=== PATIENT | male | born 1990 | race Caucasian/White ===

== ENCOUNTER 2020-05-29 11:24 | Inpatient (IN) | payer MEDICAID ==
[~2020-05-29] VITALS: Ht 170.2 cm; Wt 87.0 kg
[2020-05-29] VITALS (10 sets, daily range): BP systolic 96–122; BP diastolic 45–72
[2020-05-29 11:49] LABS: CLARITY,URINE CLEAR (Clear); COLOR,URINE YELLOW (Yellow); GLUCOSE, URINE NEGATIVE (Neg); KETONES,URINE 40 mg/dl (Neg); LEUKOCYTE ESTERASE ,URINE NEGATIVE (Neg); NITRITES, URINE NEGATIVE (Neg); OCCULT BLOOD,URINE MODERATE (Neg); PROTEIN,URINE NEGATIVE (Neg)
[2020-05-29 12:01] LABS: UA COLLECTION TYPE CLN CATCH MIDSTREAM
[2020-05-29 12:06] LABS: MUCUS STRANDS MODERATE /LPF (Neg); SQUAMOUS EPITHELIAL CELL,UR MANY /LPF (FEW)
[2020-05-29 12:10] LABS: WBC,URINE 0-4 /HPF (0-4)
[2020-05-29 12:11] LABS: BACTERIA,URINE NONE SEEN /HPF (Neg)
[2020-05-29] MEDS ORDERED: normal saline 1000ML IV soln IVB ONE (12:15)
[2020-05-29 12:22] LABS: BASOPHILS % (AUTO) 0.3 % (0-1); EOSINOPHILS % (AUTO) 0.2 % (0-6); HEMATOCRIT 40.9 % (42.0-52.0); HEMOGLOBIN 13.9 g/dl (14.0-17.9); LYMPHOCYTES # (AUTO) 1.1 X10'3 (1.1-4.8); LYMPHOCYTES % (AUTO) 14.3 % (21-51); MEAN CORPUSCULAR HEMOGLOBIN 30.7 PG (27.0-31.0); MEAN CORPUSCULAR VOLUME 90.4 FL (78-98); MEAN PLATELET VOLUME 8.2 FL (7.4-10.4); MONOCYTES # (AUTO) 0.7 X10'3 (0-0.9); MONOCYTES % (AUTO) 8.5 % (2-12); NEUTROPHILS # (AUTO) 5.9 X10'3 (1.8-7.7); NEUTROPHILS % (AUTO) 76.7 % (42-75); PLATELET COUNT 205 X10'3 (140-440); RED BLOOD COUNT 4.53 X10'6 (4.70-6.10); RED CELL DISTRIBUTION WIDTH 13.8 % (11.5-14.5); WHITE BLOOD COUNT 7.7 X10'3 (4.5-11.0)
[2020-05-29 12:44] LABS: ALANINE AMINOTRANSFERASE 743 U/L (12-78); ALBUMIN 4.1 G/DL (3.4-5.0); ALKALINE PHOSPHATASE 162 IU/L (46-116); ANION GAP 10 (8-16); ASPARTATE AMINO TRANSFERASE 313 U/L (10-37); BLOOD UREA NITROGEN 7 MG/DL (7-18); BUN/CREATININE RATIO 7.7 (5.4-32.0); CALCIUM 9.5 MG/DL (8.5-10.1); CHLORIDE 103 MMOL/L (99-107); CREATININE 0.91 MG/DL (0.60-1.10); GLUCOSE 114 MG/DL (70-104); LIPASE 72 U/L (73-393); POTASSIUM 3.6 MMOL/L (3.5-5.1); SODIUM 138 MMOL/L (135-145); TOTAL CARBON DIOXIDE 25.1 MMOL/L (24-32); eGFR > 90 ML/MIN
[2020-05-29 12:45] LABS: ALBUMIN/GLOBULIN RATIO 1.2 (1.1-1.5); TOTAL PROTEIN 7.6 G/DL (6.4-8.2)
[2020-05-29] MEDS ORDERED: morphine 4 MG/ML inj SYRINge IV PRN (13:40)
[2020-05-29] MEDS ORDERED: ondansetron/PF 4mg/2ml inj IV ONE (13:40)
--- NOTE | 2020-05-29 13:57 | NUR ---
Patient denies nausea at this time.
[2020-05-29] MEDS ORDERED: NO HOME MEDS (14:09)
[2020-05-29] MEDS ORDERED: fentaNYL/PF 50MCG/1 ML 2ML syringe ONE ×2 (14:34→15:29)
[2020-05-29] MEDS ORDERED: proCHLORperazine 10 MG/2 ml inj ONE (14:34)
[2020-05-29] MEDS ORDERED: MIDAZolam 5mg/5ml vial ONE (14:34)
[2020-05-29] MEDS ORDERED: iohexol 300 MG/1 ML 50ml polymer ONE (14:35)
[2020-05-29] MEDS ORDERED: levoFLOXACIN-Levaquin 500mg/D5 100 ML IV ONE (14:35)
[2020-05-29] MEDS ORDERED: LIDOcaine Viscous 15ml cup ONE (14:35)
[2020-05-29] MEDS ORDERED: glucagon, human recombinant 1mg kit ONE (14:35)
[2020-05-29] MEDS ORDERED: magnesium Cl slow-release 64mg tablet PO PRN (14:45)
[2020-05-29] MEDS ORDERED: magnesium 2GM in 50ml NS 50 ML IV PRN (14:45)
[2020-05-29] MEDS ORDERED: HYDROcodone/acetaminophen 10/325mg tab PO PRN (14:45)
[2020-05-29] MEDS ORDERED: potassium CL 10mEq/100ml bag 100 ML IV PRN ×2 (14:45)
[2020-05-29] MEDS ORDERED: HYDROcodone/acetaminophen 5mg/325mg tablet PO PRN (14:45)
[2020-05-29] MEDS ORDERED: morphine 2 MG/ML inj. syringe IV PRN ×2 (14:45)
[2020-05-29] MEDS ORDERED: ondansetron/PF 4mg/2ml inj IV PRN (14:45)
[2020-05-29] MEDS ORDERED: magnesium 4gm in 100ml NS 100 ML IV PRN (14:45)
[2020-05-29] MEDS ORDERED: acetaminophen 325mg tablet PO PRN (14:45)
[2020-05-29] MEDS ORDERED: potassium Cl 20 mEq SR tablet PO PRN ×2 (14:45)
--- NOTE | 2020-05-29 17:30 | NUR ---
Patient in room [facility]. I have received report from Kasia ZHONG and had the opportunity to ask questions and assume patient care.
[2020-05-29] MEDS: metroNIDAZOLE-Flagyl 500mg/NS 100 ML IV SCH (17:43)
--- NOTE | 2020-05-29 18:37 | NUR ---
Problems reprioritized. Patient report given, questions answered & plan of care reviewed with Lakia ZHONG.
--- NOTE | 2020-05-29 18:40 | NUR ---
Dr. Albert notified of pts NPO status and Needing IVF. Pt was ordered NS@100. Addendum: 05/29/20 at 1916 by Lakia Hoang RN Amended: Links added.
--- NOTE | 2020-05-29 19:00 | NUR ---
Dr. Colmenares in to see pt who is asleep. Order for Hepatitis panel at this time. Addendum: 05/29/20 at 1916 by Lakia Hoang RN Amended: Links added.
[2020-05-29] MEDS: normal saline 1000ml 1,000 ML IV SCH (19:20)
[2020-05-29] MEDS: K and/or MAG REPLACEMENT MC SCH (19:21)
[2020-05-29] MEDS: heparin, porcine 5000 units/ml vial SQ SCH (19:21)
[2020-05-29] MEDS ORDERED: temazepam 15mg capsule PO PRN (21:00)
[2020-05-29] MEDS: ciprofloxacin lact 400MG/200ML 200 ML IV SCH (21:44)
[2020-05-30] VITALS: BP 110/68
[2020-05-30] MEDS: metroNIDAZOLE-Flagyl 500mg/NS 100 ML IV SCH ×4 (00:09→23:44)
[2020-05-30] MEDS: normal saline 1000ml 1,000 ML IV SCH ×3 (04:55→20:02)
--- NOTE | 2020-05-30 06:30 | NUR ---
Patient in room [facility]. I have received report from FARHEEN Dorman and had the opportunity to ask questions and assume patient care.
[2020-05-30 06:54] LABS: BASOPHILS % (AUTO) 0.4 % (0-1); EOSINOPHILS # (AUTO) 0.1 X10'3 (0-0.9); HEMATOCRIT 37.2 % (42.0-52.0); HEMOGLOBIN 12.6 g/dl (14.0-17.9); LYMPHOCYTES # (AUTO) 1.5 X10'3 (1.1-4.8); LYMPHOCYTES % (AUTO) 23.9 % (21-51); MEAN CORPUSCULAR HEMOGLOBIN 30.6 PG (27.0-31.0); MEAN CORPUSCULAR HGB CONC 33.8 g/dL (33.0-36.5); MEAN CORPUSCULAR VOLUME 90.6 FL (78-98); MEAN PLATELET VOLUME 8.6 FL (7.4-10.4); MONOCYTES # (AUTO) 0.5 X10'3 (0-0.9); MONOCYTES % (AUTO) 8.3 % (2-12); NEUTROPHILS # (AUTO) 4.1 X10'3 (1.8-7.7); NEUTROPHILS % (AUTO) 66.4 % (42-75); PLATELET COUNT 169 X10'3 (140-440); RED CELL DISTRIBUTION WIDTH 13.9 % (11.5-14.5); WHITE BLOOD COUNT 6.1 X10'3 (4.5-11.0)
[2020-05-30 07:00] VITALS: BP 105/56
[2020-05-30 07:06] LABS: ALANINE AMINOTRANSFERASE 526 U/L (12-78); ALBUMIN 3.1 G/DL (3.4-5.0); ALBUMIN/GLOBULIN RATIO 1.1 (1.1-1.5); ALKALINE PHOSPHATASE 139 IU/L (46-116); ANION GAP 9 (8-16); ASPARTATE AMINO TRANSFERASE 179 U/L (10-37); BILIRUBIN,TOTAL 2.2 MG/DL (0.1-1.0); BLOOD UREA NITROGEN 7 MG/DL (7-18); CALCIUM 8.4 MG/DL (8.5-10.1); CHLORIDE 109 MMOL/L (99-107); CHOL/HDL RATIO 3.3 (0.00-4.99); CHOLESTEROL 115 MG/DL (0-200); CREATININE 0.87 MG/DL (0.60-1.10); GLUCOSE 87 MG/DL (70-104); HDL CHOLESTEROL 35 MG/DL (35-60); LDL CHOLESTEROL 73 MG/DL (50-100); POTASSIUM 3.7 MMOL/L (3.5-5.1); SODIUM 141 MMOL/L (135-145); TOTAL CARBON DIOXIDE 22.7 MMOL/L (24-32); TRIGLYCERIDES 77 MG/DL (20-135); eGFR > 90 ML/MIN
[2020-05-30] MEDS: heparin, porcine 5000 units/ml vial SQ SCH ×2 (08:00→20:00)
[2020-05-30] MEDS: K and/or MAG REPLACEMENT MC SCH ×2 (08:00→19:53)
[2020-05-30] MEDS: ciprofloxacin lact 400MG/200ML 200 ML IV SCH ×2 (10:07→19:55)
[2020-05-30 11:00] VITALS: BP 106/61
--- NOTE | 2020-05-30 18:25 | NUR ---
Problems reprioritized. Patient report given, questions answered & plan of care reviewed with FARHEEN Dorman.
[2020-05-30 19:00] VITALS: BP 112/77
[2020-05-30] MEDS ORDERED: lactobacillus rhamnosus 10,000 MMU CELLS/CAPSULE PO SCH (20:00)
[2020-05-31] VITALS: BP 111/63
[2020-05-31 01:00] VITALS: BP 111/63
[2020-05-31 06:23] LABS: BASOPHILS % (AUTO) 0.2 % (0-1); EOSINOPHILS # (AUTO) 0.1 X10'3 (0-0.9); EOSINOPHILS % (AUTO) 1.4 % (0-6); HEMATOCRIT 37.8 % (42.0-52.0); HEMOGLOBIN 12.8 g/dl (14.0-17.9); LYMPHOCYTES % (AUTO) 35.5 % (21-51); MEAN CORPUSCULAR HEMOGLOBIN 30.7 PG (27.0-31.0); MEAN CORPUSCULAR HGB CONC 33.8 g/dL (33.0-36.5); MEAN CORPUSCULAR VOLUME 90.8 FL (78-98); MEAN PLATELET VOLUME 8.8 FL (7.4-10.4); MONOCYTES # (AUTO) 0.5 X10'3 (0-0.9); MONOCYTES % (AUTO) 8.7 % (2-12); NEUTROPHILS % (AUTO) 54.2 % (42-75); PLATELET COUNT 181 X10'3 (140-440); RED BLOOD COUNT 4.16 X10'6 (4.70-6.10); RED CELL DISTRIBUTION WIDTH 13.8 % (11.5-14.5); WHITE BLOOD COUNT 5.5 X10'3 (4.5-11.0)
--- NOTE | 2020-05-31 06:28 | NUR ---
Problems reprioritized. Patient report given, questions answered & plan of care reviewed with Monica ZHONG. Addendum: 05/31/20 at 0628 by Lakia Hoang RN Amended: Links added.
--- NOTE | 2020-05-31 06:30 | NUR ---
Patient in room [facility]. I have received report from RASHAWN ZHONG and had the opportunity to ask questions and assume patient care.
[2020-05-31 06:53] LABS: ALANINE AMINOTRANSFERASE 456 U/L (12-78); ALBUMIN 3.4 G/DL (3.4-5.0); ALBUMIN/GLOBULIN RATIO 1.1 (1.1-1.5); ALKALINE PHOSPHATASE 145 IU/L (46-116); ANION GAP 11 (8-16); ASPARTATE AMINO TRANSFERASE 99 U/L (10-37); BILIRUBIN,TOTAL 1.4 MG/DL (0.1-1.0); BLOOD UREA NITROGEN 7 MG/DL (7-18); BUN/CREATININE RATIO 7.2 (5.4-32.0); CALCIUM 8.8 MG/DL (8.5-10.1); CHLORIDE 106 MMOL/L (99-107); CREATININE 0.97 MG/DL (0.60-1.10); GLUCOSE 90 MG/DL (70-104); MAGNESIUM 1.8 MG/DL (1.5-2.4); POTASSIUM 3.4 MMOL/L (3.5-5.1); SODIUM 141 MMOL/L (135-145); TOTAL CARBON DIOXIDE 24.1 MMOL/L (24-32); TOTAL PROTEIN 6.5 G/DL (6.4-8.2); eGFR 90 ML/MIN
[2020-05-31 07:00] VITALS: BP 107/68
[2020-05-31] MEDS ORDERED: BUPIVAcaine/PF 2.5 mg/ml (0.25%) 30ml vial ONE (07:14)
[2020-05-31] MEDS ORDERED: INDOCYANINE GREEN 25 MG/10 ML VIAL IV ONE (07:15)
--- NOTE | 2020-05-31 07:38 | NUR ---
PERFORMED COVID SWAB, PUSHED ICE GREEN AND TRIED TO CALL OR TO TELL THEM THAT PT HAS A K+ OF 3.4. NO ANSWER
--- NOTE | 2020-05-31 07:50 | NUR ---
PT IS COVID POSITIVE, NOTIFIED OR AND THEY ARE DECIDING WHAT TO DO. NURSE WILL CALL ME WHEN THEY A DECISION.
--- NOTE | 2020-05-31 07:55 | NUR ---
SPOKE WITH OR NURSE. DR LOVING WANTS THIS PT TO BE DISCHARGED AND GO HOME AND ISOLATE FOR 12 DAYS, THEN CALL BACK FOR AN APPT
--- NOTE | 2020-05-31 08:27 | NUR ---
[address] BUSH TO DISCHARGE PT
[2020-05-31] MEDS ORDERED: CIPR-259 PO (08:36)
[2020-05-31] MEDS ORDERED: PRED10TA23 PO (08:40)
--- NOTE | 2020-05-31 08:43 | NUR ---
CALLED SECURITY FOR AN ESCORT DOWN WITH MY COVID POSITIVE PATIENT. SECURITY STATES, WE DON'T DO THAT ANYMORE. CALLED ART PREPARATOR. SHE STATES. HASN'T HEARD OF EVS AND SECURITY CLEARING HALLS FOR COVID POS. PATIENT. SHE ALSO STATES, JUST PUT N95 ON PATIENT AND PUSH HIM OUT.
--- NOTE | 2020-05-31 10:00 | NUR ---
DISCHARGED PT HOME.
[2020-05-31 15:23] LABS: HEP A AB, IGM Negative (Negative)
== END 2020-05-31 10:14 | disposition home or self-care (01) | DRG 137 ==
LOC: ER 11:25 → ED HOLD 14:42 → SUR 3N 17:28
PROVIDERS: ADMIT Internal Medicine; ATTEND Internal Medicine
PROC: 0F798ZZ Dilation of Common Bile Duct, Via Natural or Artificial Opening Endoscopic (ICD-10-PCS; principal; 2020-05-29)
PROC: BF131ZZ Fluoroscopy of Gallbladder and Bile Ducts using Low Osmolar Contrast (ICD-10-PCS; 2020-05-29)
DX: U07.1 COVID-19 (principal); K80.50 Calculus of bile duct without cholangitis or cholecystitis without obstruction; E66.9 Obesity, unspecified; Z68.30 Body mass index [BMI] 30.0-30.9, adult
CPT/HCPCS: 36415; 43262; 74176; 76700; 80053; 80061; 81001; 83690; 83735; 85025; 85610; 86705; 86706; 86709; 87635; 96374; 99152; 99153; 99285; A4620; C1769; G0378; J0744; J0780; J1610; J1644; J1956; J2250; J2270; J2405; J3010; J3490; J7030; J7040; Q9967

== ENCOUNTER 2021-03-09 03:33 | Emergency (ER) | payer MEDICAID ==
[~2021-03-09] VITALS: Ht 170.2 cm; Wt 90.9 kg
[2021-03-09 04:22] LABS: CLARITY,URINE CLEAR (Clear); COLOR,URINE YELLOW (Yellow); PH,URINE 6.5 (4.8-8.0); UA COLLECTION TYPE CLN CATCH MIDSTREAM
[2021-03-09 04:23] LABS: GLUCOSE, URINE NEGATIVE (Neg); KETONES,URINE NEGATIVE (Neg); LEUKOCYTE ESTERASE ,URINE NEGATIVE (Neg); NITRITES, URINE NEGATIVE (Neg); OCCULT BLOOD,URINE SMALL (Neg); PROTEIN,URINE NEGATIVE (Neg); UROBILINOGEN,URINE 0.2 E.U/dL (0.2-1.0)
[2021-03-09 04:29] LABS: BACTERIA,URINE NONE SEEN /HPF (Neg); RBC,URINE 0-2 /HPF (0-2); SQUAMOUS EPITHELIAL CELL,UR NONE SEEN /LPF (FEW); WBC,URINE NONE SEEN /HPF (0-4)
[2021-03-09 04:58] LABS: BASOPHILS % (AUTO) 0.3 % (0-1); EOSINOPHILS # (AUTO) 0.1 X10'3 (0-0.9); EOSINOPHILS % (AUTO) 0.8 % (0-6); HEMATOCRIT 42.7 % (42.0-52.0); HEMOGLOBIN 14.4 g/dl (14.0-17.9); LYMPHOCYTES # (AUTO) 2.1 X10'3 (1.1-4.8); LYMPHOCYTES % (AUTO) 23.2 % (21-51); MEAN CORPUSCULAR HEMOGLOBIN 30.6 PG (27.0-31.0); MEAN CORPUSCULAR HGB CONC 33.8 g/dL (33.0-36.5); MEAN CORPUSCULAR VOLUME 90.5 FL (78-98); MONOCYTES # (AUTO) 0.6 X10'3 (0-0.9); NEUTROPHILS # (AUTO) 6.2 X10'3 (1.8-7.7); NEUTROPHILS % (AUTO) 68.7 % (42-75); PLATELET COUNT 213 X10'3 (140-440); RED BLOOD COUNT 4.72 X10'6 (4.70-6.10); RED CELL DISTRIBUTION WIDTH 13.6 % (11.5-14.5); WHITE BLOOD COUNT 9.1 X10'3 (4.5-11.0)
[2021-03-09 05:17] LABS: ALANINE AMINOTRANSFERASE 25 U/L (12-78); ALBUMIN 3.9 G/DL (3.4-5.0); ALBUMIN/GLOBULIN RATIO 1.1 (1.1-1.5); ALKALINE PHOSPHATASE 80 IU/L (46-116); AMYLASE 49 U/L (25-115); ANION GAP 11 (8-16); ASPARTATE AMINO TRANSFERASE 13 U/L (10-37); BILIRUBIN,TOTAL 0.5 MG/DL (0.1-1.0); BLOOD UREA NITROGEN 11 MG/DL (7-18); BUN/CREATININE RATIO 10.7 (5.4-32.0); CALCIUM 8.7 MG/DL (8.5-10.1); CHLORIDE 106 MMOL/L (99-107); CREATININE 1.03 MG/DL (0.60-1.10); GLUCOSE 101 MG/DL (70-104); LIPASE < 50 U/L (73-393); POTASSIUM 3.9 MMOL/L (3.5-5.1); SODIUM 143 MMOL/L (135-145); TOTAL CARBON DIOXIDE 26.4 MMOL/L (24-32); TOTAL PROTEIN 7.4 G/DL (6.4-8.2); eGFR 84 ML/MIN
[2021-03-09] MEDS ORDERED: iohexol 300mg/ml 100ml inj. ONE (05:26)
--- NOTE | 2021-03-09 06:47 | NUR ---
Pat up to bathroom at this time, ambulated independently, gait steady and balanced, states pain has improved since arrival.
[2021-03-09] MEDS ORDERED: ondansetron/PF 4mg/2ml inj IV ONE (07:45)
[2021-03-09] MEDS ORDERED: morphine 4 MG/ML inj SYRINge IV ONE (07:45)
[2021-03-09] MEDS ORDERED: TRAM50TA2 PO (09:09)
[2021-03-09] MEDS ORDERED: ONDA4TAB6 PO (09:09)
[2021-03-09 09:42] VITALS: BP 103/71
== END 2021-03-09 09:43 | disposition home or self-care (01) ==
LOC: ER 03:34
DX: R10.31 Right lower quadrant pain (principal); R53.1 Weakness; R50.9 Fever, unspecified; Z72.89 Other problems related to lifestyle; Z79.899 Other long term (current) drug therapy
CPT/HCPCS: 36415; 74177; 80053; 81001; 82150; 83690; 85025; 96374; 96375; 99285; J2270; J2405; Q9967